=== PATIENT | female | born 1960 | race Caucasian/White ===

== ENCOUNTER 2023-01-01 23:18 | Emergency (ER) | payer SELFPAY ==
[2023-01-02 00:19] LABS: #Monocytes 0.7 thou/uL (0.11-0.59); #Neutrophils 5.5 thou/uL (1.40-6.50); %Basophils 0.2 % (0.0-1.0); %Eosinophils 0.4 % (0.0-10.0); %Lymphocytes 23.7 % (21.0-51.0); %Monocytes 8.7 % (0.0-10.0); %Neutrophils 66.8 % (42.0-75.0); Hematocrit 33.3 % (36.0-47.0); Hemoglobin 11.1 g/dL (12.0-16.0); Mean Corpuscular HGB CONC 33.3 g/dL (32.0-36.0); Mean Corpuscular Hemoglobin 30.7 pg (27.0-31.0); Mean Corpuscular Volume 92.2 fl (78.0-98.0); Mean Platelet Volume 10.7 fL (7.4-10.4); Platelet Count 188 10x3/uL (130-400); RBC Distribution Width 12.4 % (11.5-14.5); Red Blood Cell (RBC) Count 3.61 mill/uL (4.20-5.40); White Blood Cell (WBC) Count 8.3 10x3/uL (4.8-10.8)
[2023-01-02] MEDS ORDERED: fentaNYL 50 mcg/mL 1 mL Vial ONE (00:45)
[2023-01-02] MEDS ORDERED: Aspirin Chewable 81 MG TAB ONE (00:47)
[2023-01-02 00:48] LABS: ALT (SGPT) 51 U/L (8-55); AST (SGOT) 48 U/L (5-34); Albumin 3.9 g/dL (3.4-4.8); Alkaline Phosphatase 104 U/L (40-110); Anion Gap 14 mmol/L (10-20); BUN (Urea Nitrogen) 25 mg/dL (9.8-20.1); Bilirubin, Total 0.3 mg/dL (0.2-1.2); Calc. Creatinine Clearance 0 mL/min (70-130); Carbon Dioxide 23 mmol/L (23-31); Chloride 107 mmol/L (98-107); Estimated GFR 54; Glucose 116 mg/dL (80-115); Potassium 3.6 mmol/L (3.5-5.1); Protein, Total 6.9 g/dL (5.8-8.1); Sodium 140 mmol/L (136-145)
[2023-01-02 01:07] LABS: Troponin I Less than 0.010 ng/mL (< 0.028)
[2023-01-02] MEDS ORDERED: cefTRIAXone (ROCEPHIN) 1 GM VIAL ONE (04:40)
[2023-01-02] MEDS ORDERED: Ondansetron PF 4 MG/2 ML Vial ONE (05:52)
[2023-01-02] MEDS ORDERED: Morphine 4 MG/ML VIAL ONE (05:52)
[2023-01-02] MEDS ORDERED: Iopamidol-370 76% 500 ML MDV (1 ML CHARGE) ONE (08:48)
== END 2023-01-02 05:50 | disposition home or self-care (01) ==
LOC: ERS 23:18
DX: J18.9 Pneumonia, unspecified organism (principal); I10 Essential (primary) hypertension
CPT/HCPCS: 36415; 71045; 71275; 80053; 83880; 84484; 85025; 93005; 96365; 96375; J0696; J2270; J2405; J3010; Q9967